=== PATIENT | female | born 1955 ===

== ENCOUNTER 2017-05-21 13:54 | Emergency (ER) | payer OTHER ==
[2017-05-21 13:54] VITALS: BMI 22.9
[2017-05-21 14:11] VITALS: BP 111/67; PULSE 94; RESP 18; TEMP 98.8; O2SAT 99
--- NOTE | 2017-05-21 14:53 | C.PDOC ---
History Of Present Illness 62 y/o female presents to the ER complaining of a itchy rash for 1 month. Patient reports that the rash began on her abdomen and spread. Patient reports that states that she saw her PMD and he gave her a topical cream which provided no relief. No difficult breathing, no tongue swelling, no known allergens, no lip swelling. (Mikki Pimentel) History Per: Patient History/Exam Limitations: no limitations Onset/Duration Of Symptoms: Days Current Symptoms Are (Timing): Still Present Quality Of Symptoms: Itching Severity: Moderate Time Seen by Provider: 05/21/17 14:44 Chief Complaint (Nursing): Abnormal Skin Integrity Past Medical History - Medical History PMH: Hypercholesterolemia, Multiple Sclerosis Surgical History: No Surg Hx Family History: States: No Known Family Hx - Social History Hx Alcohol Use: No Hx Substance Use: No - Immunization History Hx Tetanus Toxoid Vaccination: Yes Hx Influenza Vaccination: Yes Hx Pneumococcal Vaccination: No Vital Signs: Last Vital Signs Temp 98.8 F 05/21/17 14:09 Pulse 94 H 05/21/17 14:09 Resp 18 05/21/17 14:09 BP 111/67 05/21/17 14:09 Pulse Ox 99 05/21/17 20:52 Review Of Systems Except As Marked, All Systems Reviewed And Found Negative. Constitutional: Negative for: Fever, Chills Skin: Positive for: Rash (abdomen) Physical Exam - Physical Exam Appears: Non-toxic, No Acute Distress Skin: Warm, Other (wheals to bilateral legs, excoriations to the buttock) Head: Atraumatic, Normacephalic Eye(s): bilateral: Normal Inspection, PERRL, EOMI Nose: Normal Oral Mucosa: Moist Tongue: No Swelling Lips: No Swelling Throat: Normal, No Erythema, No Exudate Neck: Normal ROM, Supple Chest: Symmetrical Cardiovascular: Rhythm Regular Respiratory: Normal Breath Sounds, No Accessory Muscle Use Gastrointestinal/Abdominal: Normal Exam, Soft, No Tenderness Extremity: Normal ROM Neurological/Psych: Oriented x3, Normal Speech, Normal Cognition ED Course And Treatment O2 Sat by Pulse Oximetry: 99 (RA) Pulse Ox Interpretation: Normal Progress Note: Patient is resting comfortable and tolerating PO with no intraoral swelling or difficulty breathing. Patient reports improvement in rash and was instructed to follow up with physician/clinic in 1-2 days or return to ED if symptoms persist or worsen. Case discussed with Dr Black, who evaluated pt and agreed upon plan and treatment. - Physician Consult Information Physician Contacted: Outcome Of Conversation: Patient evaluated by . Dr. Black agrees with plan and treatment. Disposition - Disposition Disposition Time: 14:51 - Disposition Referrals: Linnea Zurita [Staff Provider] - Disposition: HOME/ ROUTINE Condition: STABLE Additional Instructions: Vaya a juarez mdico o la clnica en 2-5 miller sin falta, para mas evaluacin. [place] los medicamentos catrachita indicado. Volver a la yuli de emergencia en cualquier momento si los sntomas persisten o empeoran. 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 - Scribe Statement The provider has reviewed the documentation as recorded by the Scribe - Scribe Statement Summen De Provider Attestation All medical record entries made by the Scribe were at my direction and personally dictated by me. I have reviewed the chart and agree that the record accurately reflects my personal performance of the history, physical exam, medical decision making, and the department course for this patient. I have also personally directed, reviewed, and agree with the discharge instructions and disposition. (Mikki Pimentel)
== END 2017-05-21 15:32 | disposition home or self-care (01) ==
LOC: C.ER 13:54
DX: R21 Rash and other nonspecific skin eruption (principal)

== ENCOUNTER 2017-08-18 11:46 | Emergency (ER) | payer OTHER ==
[2017-08-18 11:46] VITALS: BMI 22.9
[2017-08-18 11:57] VITALS: RESP 20
[2017-08-18] MEDS ORDERED: Albuterol-Ipratrop 3 mg / 0.5 (3 ml) UD ONE ×2 (13:05→13:47)
--- NOTE | 2017-08-18 13:17 | C.PDOC ---
History Of Present Illness 62 y/o female with a PMHx of asthma presents to the ED complaining of 12 days of worsening cough. She denies any chest pain, nausea, vomiting, or diarrhea. Patient noticed increasing wheezing, prompting her to come in for evaluation today. Time Seen by Provider: 08/18/17 12:21 Chief Complaint (Nursing): Cough, Cold, Congestion History Per: Patient History/Exam Limitations: no limitations Onset/Duration Of Symptoms: Days (x12) Current Symptoms Are (Timing): Still Present Past Medical History Reviewed: Historical Data, Nursing Documentation, Vital Signs Vital Signs: Last Vital Signs Temp 97.9 F 08/18/17 15:31 Pulse 94 H 08/18/17 15:31 Resp 20 08/18/17 15:31 BP 98/63 L 08/18/17 15:31 Pulse Ox 99 08/18/17 15:31 - Medical History PMH: Asthma, Diabetes, Hypercholesterolemia, Multiple Sclerosis Surgical History: No Surg Hx Family History: States: Unknown Family Hx - Social History Hx Tobacco Use: No Hx Alcohol Use: No Hx Substance Use: No - Immunization History Hx Tetanus Toxoid Vaccination: No Hx Influenza Vaccination: No Hx Pneumococcal Vaccination: No Review Of Systems Except As Marked, All Systems Reviewed And Found Negative. Constitutional: Negative for: Fever, Chills Cardiovascular: Negative for: Chest Pain Respiratory: Positive for: Cough, Wheezing. Negative for: Shortness of Breath, Hemoptysis Gastrointestinal: Negative for: Nausea, Vomiting, Diarrhea Neurological: Negative for: Weakness, Numbness Physical Exam - Physical Exam Appears: Non-toxic, No Acute Distress Skin: Normal Color, Warm, Dry, No Rash Head: Atraumatic, Normacephalic Eye(s): bilateral: Normal Inspection, PERRL, EOMI Oral Mucosa: Moist Neck: Normal ROM, Supple Chest: Symmetrical Cardiovascular: Rhythm Regular, No Friction Rub, No Murmur Respiratory: No Rales, No Rhonchi, Wheezing (moderate expiratory wheezing bilaterally) Gastrointestinal/Abdominal: Soft, No Tenderness Back: Normal Inspection, No CVA Tenderness Extremity: Normal ROM, No Tenderness, No Swelling Extremity: Bilateral: Atraumatic, Normal ROM Pulses: Left Radial: Normal, Right Radial: Normal Neurological/Psych: Oriented x3, Normal Speech, Normal Motor Gait: Steady ED Course And Treatment - Laboratory Results Result Diagrams: 08/18/17 13:57 08/18/17 13:57 O2 Sat by Pulse Oximetry: 97 (RA) Pulse Ox Interpretation: Normal Medical Decision Making Medical Decision Making: Time: 12:51 Initial Plan: * EKG * CMP * CBC * Duoneb 3 ml INH * Methylprednisolone 80 mg IVP * Chest x-ray On re-exam, the patient reports improvement of symptoms. Lugs are CTA, heart is RRR, Abdomen is soft, non-tender and the patient is tolerating PO well. Follow up with the medical doctor within 1-2 days. REturn if worsened. Disposition - Disposition Referrals: Gretel Mccurdy MD [Medical Doctor] - Disposition: HOME/ ROUTINE Disposition Time: 14:48 Condition: GOOD Additional Instructions: Follow up with medical doctor within 1-2 days. Return if worsened. 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 - Scribe Statement The provider has reviewed the documentation as recorded by the Scribe (Nona Manuel) All medical record entries made by the Scribe were at my direction and personally dictated by me. I have reviewed the chart and agree that the record accurately reflects my personal performance of the history, physical exam, medical decision making, and the department course for this patient. I have also personally directed, reviewed, and agree with the discharge instructions and disposition.
[2017-08-18] MEDS: Albuterol-Ipratrop 3 mg / 0.5 (3 ml) UD IH SCH ×3 (13:40→14:05)
[2017-08-18] MEDS ORDERED: MethylPREDNISolone 40 mg Vial ONE (13:44)
[2017-08-18 14:03] LABS: BASO # 0.1 K/uL (0.0-0.2); EOS # 0.6 K/uL (0.0-0.7); EOS % 7.9 % (0.0-4.0); LYMPH # 2.5 K/uL (1.0-4.3); LYMPH % 33.7 % (20.0-40.0); MEAN CELL VOLUME 88.9 fL (81.0-99.0); MEAN CORPUSCULAR HGB CONC 33.7 g/dL (33.0-37.0); MEAN PLATELET VOLUME 7.5 fL (7.2-11.7); MONO # 0.5 K/uL (0.0-0.8); NEUT # 3.7 K/uL (1.8-7.0); NEUT % 50.4 % (50.0-75.0); RED CELL DISTRIBUTION WIDTH 13.5 % (11.5-14.5); WHITE BLOOD COUNT 7.4 K/uL (4.8-10.8)
[2017-08-18 14:15] LABS: ALBUMIN 4.4 g/dL (3.5-5.0); ALT/SGPT 9 U/L (9-52); AST/SGOT 26 U/L (14-36); BLOOD UREA NITROGEN 9 mg/dL (7-17); CALCIUM 9.2 mg/dl (8.6-10.4); GFR AFRICAN-AMERICAN > 60; GFR NON-AFRICAN AMERICAN > 60
--- NOTE | 2017-08-18 14:43 | RAD ---
Chest x-ray two views History: Cough and fever. Comparison: None available. Findings: No focal infiltrate or effusion. Heart size within normal limits. Impression: No focal infiltrate or effusion.
[2017-08-18 15:37] VITALS: BP 98/63; PULSE 94; TEMP 97.9
--- NOTE | 2017-08-21 10:25 | CARD ---
APPROVED REPORT EKG Measurement Heart [id number] <Conclusion> Normal sinus rhythm Normal ECG
[2017-08-22 17:44] VITALS: O2SAT 97
== END 2017-08-18 15:31 | disposition home or self-care (01) ==
LOC: C.ER 11:46
DX: J45.901 Unspecified asthma with (acute) exacerbation (principal)
CPT/HCPCS: 71046; 80053; 85025; 93005; 94150; 94640; 96374; 99283; J2930